=== PATIENT | female | born 1995 | race Caucasian/White ===

== ENCOUNTER 2022-12-28 19:19 | Outpatient (RCR) | payer OTHER, SELFPAY ==
[2022-12-28] MEDS: RHO(D) IMMUNE GLOBULIN 300 MCG/2 ML SYRINGE IM (19:38)
== END 2023-03-27 23:59 | disposition home or self-care (01) ==
LOC: ANHLAB 19:19
PROVIDERS: PCP Pediatrics; Visit Provider Obstetrics & Gynecology
DX: Z29.13 Encounter for prophylactic Rho(D) immune globulin (principal); O36.0130 Maternal care for anti-D [Rh] antibodies, third trimester, not applicable or unspecified; Z3A.00 Weeks of gestation of pregnancy not specified
CPT/HCPCS: 36415; 85461; 86850; 86900; 86901; 90384; J2790

== ENCOUNTER 2023-03-02 16:16 | Outpatient (CLI) | payer OTHER, SELFPAY ==
[2023-03-02 16:57] VITALS: BP 149/88; PULSE 79
[2023-03-02 17:01] VITALS: BP 147/86; PULSE 77
[2023-03-02 17:07] LABS: Basophils Percent Auto 0.4 % (0.2-1.2); Eosinophils Absolute Auto 0.1 K/mm3 (0-0.3); Eosinophils Percent Auto 0.7 % (0-4.4); Hematocrit 38.9 % (37.0-47.0); Hemoglobin 13.1 g/dL (12.0-15.0); Immature Granulocyte Absolute 0.06 K/mm3 (0.00-0.031); Immature Granulocyte Percent A 0.6 % (0-0.5); Lymphocytes Absolute Auto 1.87 K/mm3 (0.9-3.2); Mean Corpuscular HGB Conc 33.7 g/dl (32-36); Mean Platelet Volume 10.3 fl (7.4-10.4); Monocytes Absolute Auto 0.8 K/mm3 (0.1-0.6); Monocytes Percent Auto 8.4 % (2.6-8.5); Neutrophils Percent Auto 70.9 % (45.5-73.1); Platelet Count Result 210 k/mm3 (150-375); Red Blood Count 4.37 M/mm3 (4.2-5.4); Red Cell Distribution Width 13.6 % (11.5-14.5); White Blood Count 9.8 K/mm3 (4.5-10.0)
[2023-03-02 17:16] VITALS: BP 147/85; PULSE 70
[2023-03-02 17:16] LABS: Appearance Urine Clear (Clear); Bacteria Urine Rare /hpf; Bilirubin Urine Negative (Negative); Blood Urine Trace (Negative); Color Urine Yellow (Yellow); Glucose Urine UA Negative (Negative); Hyaline Casts Urine Present /lpf; Ketones Urine Negative (Negative); Leukocyte Esterase Ur Negative LEU/UL (NEGATIVE); Nitrate Urine Negative (Negative); Non Pathogenic Casts 0-2; Protein Urine Negative (Negative); RBC Urine 0-2 /hpf (0-2); Specific Grav Ur 1.006 (1.001-1.035); Squamous Epithelial Cell Urine Occasional /hpf (Few); Urobilinogen Urine 0.2 mg/dL (<2.0); WBC Urine 0-5 /hpf (0-3)
[2023-03-02 17:24] LABS: Add Urine Microscopic? YES
[2023-03-02 17:31] VITALS: BP 141/82; PULSE 68
[2023-03-02 17:31] LABS: Alanine Aminotransferase 15 U/L (6-35); Albumin Level 3.5 g/dL (3.5-5.1); Alkaline Phosphatase 218 U/L (38-126); Anion Gap 9 mmol/L (8-16); Aspartate Amino Transferase 22 U/L (14-36); Bilirubin,Total 0.3 mg/dL (0.2-1.3); Blood Urea Nitrogen 5 mg/dL (7-17); Calcium 9.6 mg/dL (8.4-10.2); Carbon Dioxide 20 mmol/L (22-30); Chloride 107 mmol/L (98-107); Estimated Glomerular Filt Rate > 60; Glucose 75 mg/dL (65-110); Potassium 3.3 mmol/L (3.4-5.0); Sodium 136 mmol/L (137-145); Uric Acid 3.9 mg/dL (2.5-7.5)
--- NOTE | 2023-03-02 17:36 | PC.NURSE ---
Called Dr. Alma Cantor with lab results and BPs. Reactive tracing with contractions q 2-5 min. December D/C home.
[2023-03-02 18:39] LABS: Creatinine Urine 39.5 mg/dL; Total Protein Urine Random 26 mg/dL; Ur Ttl Prot Creatinine Ratio 0.66 mg/mg (0-0.20)
== END 2023-03-02 17:42 | disposition home or self-care (01) ==
LOC: ANHOBOP 16:32 → ANHOBPP 16:39
PROVIDERS: Visit Provider Obstetrics & Gynecology
DX: O13.9 Gestational [pregnancy-induced] hypertension without significant proteinuria, unspecified trimester (principal); Z3A.00 Weeks of gestation of pregnancy not specified
CPT/HCPCS: 36415; 59025; 80053; 81001; 82570; 84156; 84550; 85025; 87086; 99199

== ENCOUNTER 2023-03-04 14:53 | Observation (INO) | payer OTHER, SELFPAY ==
[2023-03-04 15:09] VITALS: BP 141/82; PULSE 69
[2023-03-04 15:16] VITALS: BP 139/84; PULSE 67
[2023-03-04 15:31] VITALS: BP 138/78; PULSE 71
[2023-03-04 15:46] VITALS: BP 135/77; PULSE 70
[2023-03-04 15:51] VITALS: BMI 41.2
--- NOTE | 2023-03-04 15:52 | OBADM ---
This patient, Nasrin Richmond, admitted to the OB room OB Post 116 for observation. Patient/family oriented to hospital policies and general routines including ID bracelet, bed and alarms, visiting hours, pain management, procedures, bathroom and other care routines, personal items, smoking policy, room service/diet, and visiting hours. Patient/Family are encouraged to report perceived risks to care and to ask questions if they do not understand what they are told or what they should do.
--- NOTE | 2023-03-05 16:35 | PM.OBTRLD ---
OB - Triage/Final Diagnosis Visit Information Reason for evaluation: threatened labor Comments/Additional reasons for admission: I have assessed the risk for this patient, Nasrin Richmond, and determined that she would benefit from observation care. Evaluation Laboratory results: Laboratory Tests 03/04/23 15:46 KB Hemoglobin Negative
== END 2023-03-04 16:00 | disposition home or self-care (01) ==
PROVIDERS: Admitting Provider Obstetrics & Gynecology; Visit Provider Obstetrics & Gynecology
DX: O47.9 False labor, unspecified (principal); Z3A.00 Weeks of gestation of pregnancy not specified
CPT/HCPCS: 36415; 85460; G0378; G0379

== ENCOUNTER 2023-03-11 15:51 | Inpatient (IN) | payer OTHER, SELFPAY ==
--- NOTE | 2023-03-11 17:15 | WPDANESEPP ---
Anes - Eval Pre Procedure Procedure: labor epidural Date/Time: 03/11/23 17:15 Pre Op Diagnosis: IOL Patient Data Age: 27 Gender: F Height: Weight: Allergies Allergy/AdvReac Type Severity Reaction Status Date / Time No Known Allergies Allergy Verified 02/14/23 15:39 Home Medications Medication Instructions Recorded Confirmed Type cetirizine 10 mg tablet (Zyrtec) 10 mg PO DAILY 02/14/23 02/14/23 History prenat.vits,blaire,dtn-ingm-ctich 1 tablet 02/14/23 History Patient hx anesthesia problems: none Family hx anesthesia problems: none Results Review: All pre-operative results and documents have been reviewed as part of the pre-operative evaluation. [facility] Past Medical History Medical History (Updated 03/11/23 @ 17:16 by Mari Guajardo CRNA) Anxiety and depression Family History Family History Grandparent Breast cancer Social History Social History Substance use: never Spiritual care concerns: No Exam Day of Procedure 03/11/23 17:15 Patient weight: obese Heart: regular rate and rhythm Lungs: normal air movement Airway: Mallampati scale Neurological: alert and oriented
[2023-03-11] MEDS: DINOPROSTONE 10 MG VAG INSERT VAGINAL (17:26)
[2023-03-11 17:27] LABS: Basophils Percent Auto 0.2 % (0.2-1.2); Eosinophils Absolute Auto 0.1 K/mm3 (0-0.3); Eosinophils Percent Auto 0.7 % (0-4.4); Hematocrit 36.8 % (37.0-47.0); Hemoglobin 12.6 g/dL (12.0-15.0); Immature Granulocyte Absolute 0.05 K/mm3 (0.00-0.031); Immature Granulocyte Percent A 0.5 % (0-0.5); Lymphocytes Percent Auto 14.1 % (18.3-44.2); Mean Corpuscular HGB Conc 34.2 g/dl (32-36); Mean Corpuscular Hemoglobin 30.4 pg (26-34); Mean Corpuscular Volume 88.7 fl (80-100); Mean Platelet Volume 10.1 fl (7.4-10.4); Monocytes Absolute Auto 0.6 K/mm3 (0.1-0.6); Monocytes Percent Auto 6.8 % (2.6-8.5); Neutrophils Absolute Auto 7.2 K/mm3 (1.3-6.7); Neutrophils Percent Auto 77.7 % (45.5-73.1); Platelet Count Result 222 k/mm3 (150-375); Red Blood Count 4.15 M/mm3 (4.2-5.4); Red Cell Distribution Width 13.7 % (11.5-14.5); White Blood Count 9.2 K/mm3 (4.5-10.0)
[2023-03-11 17:38] LABS: Alanine Aminotransferase 15 U/L (6-35); Albumin Level 3.3 g/dL (3.5-5.1); Alkaline Phosphatase 207 U/L (38-126); Anion Gap 7 mmol/L (8-16); Aspartate Amino Transferase 21 U/L (14-36); Bilirubin,Total 0.4 mg/dL (0.2-1.3); Blood Urea Nitrogen 5 mg/dL (7-17); Calcium 8.5 mg/dL (8.4-10.2); Carbon Dioxide 22 mmol/L (22-30); Chloride 105 mmol/L (98-107); Estimated Glomerular Filt Rate > 60; Glucose 82 mg/dL (65-110); Potassium 2.9 mmol/L (3.4-5.0); Sodium 134 mmol/L (137-145); Uric Acid 4.8 mg/dL (2.5-7.5)
[2023-03-11 17:48] VITALS: TEMP 36.1
[2023-03-11 17:50] VITALS: BP 134/88; PULSE 62
[2023-03-11 18:00] VITALS: BP 137/82; PULSE 61
[2023-03-11 18:30] VITALS: BP 144/80; PULSE 61
[2023-03-11 19:00] VITALS: BP 121/72; PULSE 71
[2023-03-11 23:34] VITALS: BP 146/90; PULSE 67; TEMP 36.1
[2023-03-12] VITALS (259 sets, daily range): BP systolic 121–194; BP diastolic 66–114; PULSE 53–127; RESP 16–18; TEMP 36.1–37.1; O2SAT 92–100
[2023-03-12] MEDS: LACTATED RINGERS 1,000 ML 125 ML IV CONT ×4 (05:56→23:08)
[2023-03-12] MEDS: OXYTOCIN 30 UNITS/NS 500 ML 30 UNITS/500 ML BAG 6 UNITS IV CONT (05:57)
[2023-03-12 06:04] LABS: Rapid Plasma Reagin Non-Reactive (NonReactive)
[2023-03-12] MEDS: POTASSIUM CHLORIDE 20 MEQ ER TABLET 40 MEQ PO (09:15)
--- NOTE | 2023-03-12 09:15 | WPDOBADMIT ---
Obstetrics - Admit Note Admission Note: record reviewed. Additions to the history and/or subsequent changes in the physical findings follow. 27 y/o G1 at 39 2/7 weeks here for induction of labor. GBS neg. EFW on ultrasound just over 3 weeks ago was 7#13oz, so today the EFW is approximately 9#. Cervidil overnight, has been withdrawn. Starting to feel more contractions. AVSS NST reactive TOCO: contractions irregularly ABD soft, nontender, gravid, vertex EXT nontender Cervix 2-3/80/-2. Vertex. AROM with clear fluid. IUPC placed. A: IUP at term, desiring induction of labor. P: Oxytocin. Anticipate .
--- NOTE | 2023-03-12 13:15 | PM.OBPNLAB ---
Pain Control Date/time seen: 03/12/23 11:45 Comments: Comfortable with epidural. Pelvic Exam Dilation (cm): 4 Effacement (%): 80 station: -1 Contractions Contraction frequency: 3 Contraction pattern: Regular Status status: Category l Assessment and Plan Plan: continuous present management Comments: Continue labor.
--- NOTE | 2023-03-12 16:39 | PC.NURSE ---
1403 - Introductions were made and mother shared how she would like to feed her baby with . Encouraged mother to place ugsz-us-[id number] until the first feeding if infant is stable and to wait on the weight to help stabilize, reduce stress, and improve latching by allowing time to explore parent's chest using instincts. Education was shared on how to protect her milk supply with latching infant and/or using hand expression to remove milk if doesn't latch in the first hour, then finger feed colostrum to the infant to preserve breast focus. Demonstration given on how to hand express using tool. Resources provided with educational trifold for bonding and feeding infant. Parents voiced understanding of information and to call if there is a request for assistance.
--- NOTE | 2023-03-12 16:42 | PM.OBPNLAB ---
Pain Control Date/time seen: 03/12/23 16:42 Comfortable with epidural. Pelvic Exam Dilation (cm): 5 Effacement (%): 90 station: -1 Contractions Monitor mode: Internal Contraction frequency: 3 Contraction pattern: Regular Status status: Category l Assessment and Plan Comments: Continue labor.
[2023-03-12] MEDS: diphenhydrAMINE HCl INJ 50 MG/ML VIAL 25 MG IV PUSH (20:47)
[2023-03-12] MEDS: CALCIUM CARBONATE (TUMS) 500 MG (200 MG ELEMENTAL) 400 MG PO (20:47)
[2023-03-13] VITALS (103 sets, daily range): BP systolic 96–165; BP diastolic 62–112; PULSE 71–178; RESP 16–18; TEMP 36.3–37.1; O2SAT 83–100
[2023-03-13] MEDS: AMPICILLIN 2 GM/NS 100 ML 2 GM/100 ML BAG IVPB (03:39)
--- NOTE | 2023-03-13 04:54 | P.PCNOB_ITS ---
OB - Delivery Note Procedure Delivery date: 03/13/23 Procedure: Induction of labor with Induction method: Per Cervidil Protocol Delivery augmentation: Rupture of Membranes and Pitocin Delivery monitor: External FHT, External Uterine and Internal Uterine Route of delivery: Laceration Description: Perineal - 2nd Degree Delivery repair: vicryl (3-0) Specimen: Yes (cord blood) Quantitative Blood Loss (ml): 140 Anesthesia type: Epidural Disposition: PACU Complications: None Narrative: 27 y/o G1 at 39 3/7 weeks gestation who presented to the hospital for induction of labor. Cervidil was placed overnight, then withdrawn in the morning. Oxytocin was administered intravenously. Amniotomy was performed with return of clear fluid. She received an epidural for pain control. Her labor progressed and her cervix dilated completely. She pushed with good effort and delivered the infant's head to the perineum, followed by the body. The nose and mouth were bulb suctioned. After a delay, the cord was clamped and cut. The was handed off the field. Cord blood was collected. The placenta delivered spontaneously and was grossly normal in appearance. The usual 3 vessel cord was noted. A second degree midline perineal laceration was sustained. This was reapproximated using 3 0 Vicryl in the usual layered fashion. Excellent h emostasis resulted as did excellent reapproximation of the normal anatomy. Needle and instrument counts were correct. The patient was taken to recovery room in stable condition. The went to the nursery in stable condition. I was present and scrubbed for the entire delivery. [place] Baby Date of : 03/13/23 Time of : 04:27 Weeks of gestation at delivery: 39 Infant gender: Male presentation: vertex position: Right Occiput Anterior Placenta delivery description: Spontaneous and Normal Configuration Cord Vessel Description: 3 Vessels and Delayed Cord Clamping score one minute: 8 score five minutes: 9
--- NOTE | 2023-03-13 04:55 | PM.OBDSVD ---
DS: Admitting Diagnosis Discharge Date 03/15/23 Admitting Diagnosis IUP at 39 3/7 weeks DS: Discharge Diagnosis Discharge Diagnosis (1) (normal spontaneous vaginal delivery): Code(s): O80 - Encounter for full-term uncomplicated delivery Status: Acute OB - DS: Summary OB Procedures : None OB Procedures Intrapartum: Spontaneous Vag Delivery OB Procedures: : None Time Spent with Patient Time attestation: Total time spent providing and/or coordinating discharge services: DS: Data Data Completed and Pending Labs on day of discharge: Labs from last 24 hours 03/11/23 16:45 RPR Non-reactive Discharge Plan Discharge Attending physician on discharge: Roberto Aguillon Discharging Clinician: Roberto Aguillon Patient Disposition: Home, Self-Care Activity: pelvic rest Diet: regular Discharge Instructions: Call or return if temperature above 100.4? F, increased abdominal pain, increased vaginal bleeding or any new problems. Education: Mom and Baby Guide Given to: Mother Follow-Up: Call your delivering provider's office for an appointment to be seen in: 6 weeks, if blood pressure is elevated at follow up appointment on 03/17/23, you will need to be seen in the office in 1 week for blood pressure check. Mom and baby should come to the [facility] for the follow-up appointment. Appointment Date/Time: March 17, 2023 at 11:00 am What to expect at your follow-up visit: Blood Pressure Check & Physical Assessment Call [phone] if you are unable to keep your appointment time. BREAST CARE: * Wear a snug supportive bra. * For engorgement discomfort: Breast Feeding/Pumping: * Apply warm moist washcloths * Express milk as needed to relieve engorgement * Wear loose clothing Bottle Feeding: * May apply ice packs * For sore nipples: * Identify correct latch-on/flange size * Apply warm moist washcloths before and after nursing * Air dry nipples after nursing * May apply Lansinoh cream to nipples EPISIOTOMY/PERINEAL CARE: * Until bleeding stops, use your mela bottle after urinating * Change your pad frequently throughout the day * You may take sitz baths several times a day (fill your bathtub with warm water and soak for 20 minutes.) Do NOT bathe in the water * No tub baths until seen by your physician - You may shower ACTIVITY: * Rest as much as possible. * Do not exercise or lift anything heavier than your baby (such as laundry or other children.) * Avoid stairs or driving as much as possible. * Do not put anything into the vagina. No douching, tampons, or sexual activity until seen by physician. NOTIFY PHYSICIAN IF YOU HAVE ANY QUESTIONS OR IF ANY OF THE FOLLOWING SYMPTOMS OCCUR: * If your episiotomy/perineum becomes red, swollen, or more painful than what you have experienced in the hospital. * If your vaginal bleeding becomes foul smelling. * If your vaginal bleeding becomes more heavy than a period or if your bleeding changes from pink to bright red. However, you may pass an occasional walnut-sized clot once or twice for the first week . * If you experience a sharp, shooting pain in you calves. * If you discover a hard, reddened area on your breast or if you experience flu-like symptoms. DIET: * Eat regular, well-balanced meals. * Drink plenty of fluids daily. If , drink to thirst. Patient Instructions: Your Baby (DC), Expression, Collection and Storage of Breast Milk (DC) Stand Alone Forms: General Discharge Information Follow-up/Referrals: Roberto Aguillon MD [Physician] - 6 Weeks Discharge Medications: New ibuprofen 600 mg tablet 600 mg PO Q6H PRN (Reason: cramps) Qty: 30 0RF Continued cetirizine [Zyrtec] 10 mg Tablet 10 mg PO DAILY prenat.vits,blaire,bpo-dilh-xtior Tablet 1 tablet
[2023-03-13] MEDS: OXYTOCIN 30 UNITS/NS 500 ML 30 UNITS/500 ML BAG 125 UNITS IV CONT (05:00)
[2023-03-13] MEDS: LIDOCAINE HCL 1% LOCAL INJ 20 ML VIAL (05:02)
[2023-03-13] MEDS: ACETAMINOPHEN 325 MG TABLET 650 MG PO (07:53)
[2023-03-13] MEDS: BENZOCAINE 20% AER SPR (*SP) 56 GM CAN 1 SPRAY TOPICAL (07:53)
[2023-03-13] MEDS: WITCH HAZEL 40 PADS 1 PAD TOPICAL (07:53)
--- NOTE | 2023-03-13 08:20 | OBPPTRN ---
Patient transferred to post room #282 via wheelchair. Support person present. Oriented to unit, room, information board, rooming in, admission packet and security measures. Patient verbalizes understanding.
--- NOTE | 2023-03-13 13:07 | WPDANLDPN2 ---
Anes-Prog Note L&D Date/Time: 03/13/23 13:07 Comfortable throughout: labor and delivery Neuraxial method: epidural Epidural/Spinal procedure site: clean & non-tender Neuro status: Neuro function grossly intact. Cardiovascular status: normal Respiratory status: normal Airway patency: baseline Mental status: baseline Post-Op hydration status: normal Vital Signs: Last Vital Signs Temp 36.6 C 03/13/23 13:02 Pulse 86 03/13/23 13:02 Resp 16 03/13/23 13:02 BP 141/82 H 03/13/23 13:02 Pulse Ox 99 03/13/23 13:02 O2 Del Method Room Air 03/13/23 12:00 Pain score (VAS): 2 I/O: Intake & Output 03/12/23 03/13/23 03/13/23 23:59 07:59 15:59 Intake Total 1000 1000 350 Output Total 140 85 Balance 1000 860 265 Post-procedural complaints: none Patient feedback: Patient satisfied with anesthetic care.
[2023-03-13] MEDS: DOCUSATE SODIUM 100 MG CAPSULE PO (16:20)
[2023-03-13] MEDS: IBUPROFEN 600 MG TABLET PO (16:21)
--- NOTE | 2023-03-13 18:38 | PC.NURSE ---
[id number] Consulted with patient to assess needs related to . Mother is demonstrating with the nipple shield. There's milk residue in the shield, however, as the baby nurses the nipple shield and the breast are visualized moving in and out of the infants mouth. Reviewed working with infant, supporting breast and how to protect the nipples with an optimal deep latch, good positioning, and good hand washing. Education was given on how to protect the nipple, milk supply and how to use the nipple shield as a tool, then removing it to see if the will latch without it. The nipple shield was removed (nipple blanching was visualized) and the infant latched to the nipple that had been pulled out with the nipple shield on the left breast using the football positioning. Mother works well with her with encouragement and was educated on how to watch and listen for swallowing. Encouraged understanding the benefits of skin to skin, responding to feeding cues, frequencies of feeding 8-12 times in 24 hours (approximately 2-3 hours), duration of feedings, milk production, intake/output feeding sheet and signs of adequate intake encouraging swallowing at the breast. After an effective breastfeed infant detached and the nipple was not misshaped and mother had no pain. [phone] Consulted with patient to assess needs related to . Mother is demonstrating with the nipple shield. There's milk residue in the shield, however, as the baby nurses the nipple shield and the breast are visualized moving in and out of the infants mouth. Reviewed the nipple shield waltz and removed the nipple shield and latched to mother's breast with effective pain free. [phone] Consulted with patient and the parents are concerned regarding the appears to be gagging. Instructed with demonstration of how to use the bulb syringe and how to turn over and perform back pats to assist on getting clearing fluid out so they can be prepared if this should happen at home. Reviewed how to call for help while at the hospital. is gaggy and not attempting to latch at this time. Reported to the Primary RN.
[2023-03-14 04:09] VITALS: BP 131/88; PULSE 78; RESP 18; TEMP 36.8; O2SAT 97
[2023-03-14 04:41] LABS: Hemoglobin 10.8 g/dL (12.0-15.0)
[2023-03-14] MEDS: MULTIVIT/MIN/PREN/FOL AC/IRON TABLET 1 TAB PO (07:44)
[2023-03-14] MEDS: DOCUSATE SODIUM 100 MG CAPSULE PO ×2 (07:44→16:28)
[2023-03-14 07:45] VITALS: BP 128/90; PULSE 62; RESP 16; TEMP 36.6; O2SAT 100
[2023-03-14] MEDS: IBUPROFEN 600 MG TABLET PO ×2 (07:45→16:28)
--- NOTE | 2023-03-14 11:03 | PM.OBPNVD ---
OB - PN: Subj Subjective Date/time seen: 03/14/23 11:03 Narrative: Pain OK. Would like circumcision for son. OB - PN: Obj Data Labs 03/14/23 02:36 03/11/23 16:45 Labs: Laboratory Results - last 24 hr 03/14/23 02:36 Hgb 10.8 L Hct 33.0 L OB - PN A/P Plan day: 1 Comments: A: PPD#1, doing well. P: Routine care. Reviewed circ. Plan home tomorrow. Exam Psych: Other: AVSS ABD soft, nontender, fundus firm EXT nontender
--- NOTE | 2023-03-14 13:13 | WPDANLDPN2 ---
Anes-Prog Note L&D Date/Time: 03/14/23 13:13 Comfortable throughout: labor and delivery Neuraxial method: epidural Epidural/Spinal procedure site: clean & non-tender Neuro status: Neuro function grossly intact. Cardiovascular status: normal Respiratory status: normal Airway patency: baseline Mental status: baseline Post-Op hydration status: normal Vital Signs: Last Vital Signs Temp 36.6 C 03/14/23 07:45 Pulse 62 03/14/23 07:45 Resp 16 03/14/23 07:45 BP 128/90 03/14/23 07:45 Pulse Ox 100 03/14/23 07:45 O2 Del Method Room Air 03/13/23 12:00 Pain score (VAS): 3/10 I/O: Intake & Output 03/13/23 03/14/23 03/14/23 23:59 07:59 15:59 Intake Total 950 600 Output Total 300 500 Balance 650 100 Post-procedural complaints: none Patient feedback: Patient satisfied with anesthetic care.
[2023-03-14] MEDS: POTASSIUM CHLORIDE 20 MEQ ER TABLET 40 MEQ PO (16:28)
[2023-03-14 20:00] VITALS: BP 138/92; PULSE 70; RESP 18; TEMP 36.6; O2SAT 100
[2023-03-15] MEDS: DOCUSATE SODIUM 100 MG CAPSULE PO ×2 (09:52→16:33)
[2023-03-15] MEDS: POTASSIUM CHLORIDE 20 MEQ ER TABLET 40 MEQ PO ×2 (09:53→17:49)
[2023-03-15] MEDS: WITCH HAZEL 40 PADS 1 PAD TOPICAL (09:53)
[2023-03-15] MEDS: IBUPROFEN 600 MG TABLET PO ×2 (09:56→16:33)
[2023-03-15 10:00] VITALS: BP 142/86; PULSE 62; RESP 18; TEMP 36.7; O2SAT 99
--- NOTE | 2023-03-15 17:53 | PC.NURSE ---
Patient given discharge instructions and has been discharged to a Care Bed as her infant is still admitted due to jaundice and receiving phototherapy.
--- OUTSIDE RECORDS SUMMARY | 2023-05-12 11:57 | XMS_ITS | Patient Health Record ---
Author Name Unknown Organization [facility] Address [address] [place] [address] Care Team Providers Care Electrical Contacts Adjuster Name Role Phone Mari Aguillon Primary Care Provider Unavailab Mandi Golden Unavailable [phone] ALLERGIES No Known Allergies REASON FOR REFERRAL No Information MEDICATIONS Medication SIG (Take, Route, Frequency, Duration) Notes Start Date End Date Status famotidine 40 mg 1 tab(s) orally bid Active Cetirizine Hydrochloride 10 mg 1 tab(s) orally bid Active IMMUNIZATIONS Vaccine Route Administration Date Status Comme nts DTaP < 7 y/o Unknown 11/28/2002 Administered Portal Inf ormation Hepatitis B (11-19) Unknown 07/13/1998 Administered Por patti Information NOC PedvaxHIB Unknown 01/05/1999 Administered Portal In formation NOC Tdap Unknown 11/08/2008 Administered Portal Infor mation Hepatitis A Unknown 12/21/2009 Administered Portal Info rmation SOCIAL HISTORY Tobacco Use: Social History Observation Description Date Details (start date - stop date) Never Smoker NA - NA Sex Assigned At : Social History Observation Description Sex Assigned At Unknown Smoking Smart Form: Question Answer Notes Are you a: never smoker PROBLEMS Problem Type ICD Code Onset Dates
== END 2023-03-15 17:53 | disposition home or self-care (01) | DRG 807 ==
LOC: ANHLDR 03-13 04:56 → ANHOB2 03-13 08:22
PROVIDERS: Admitting Provider Obstetrics & Gynecology; Visit Provider Obstetrics & Gynecology
DX: O42.02 Full-term premature rupture of membranes, onset of labor within 24 hours of rupture (principal); Z37.0 Single live birth; O13.4 Gestational [pregnancy-induced] hypertension without significant proteinuria, complicating childbirth; Z3A.39 39 weeks gestation of pregnancy; O70.1 Second degree perineal laceration during delivery
CPT/HCPCS: 36415; 80053; 84550; 85014; 85018; 85025; 86592; 86850; 86880; 86900; 86901; 86902; A9270; J0290; J1200; J2590; J2795; J7120

== ENCOUNTER 2023-03-17 08:28 | Observation (INO) | payer OTHER, SELFPAY ==
[2023-03-17] VITALS (94 sets, daily range): BP systolic 125–180; BP diastolic 72–112; PULSE 25–155; RESP 16–30; TEMP 36.3–36.8; O2SAT 77–100; BMI 37.5
--- NOTE | ~2023-03-17 | XR_ITS ---
EXAMINATION: XR chest 2V DATE: 03/17/2023 09:48 INDICATION: Shortness of breath TECHNIQUE: frontal view of the chest was obtained. COMPARISON: None FINDINGS: Mild linear discoid atelectasis in the right upper lung zone. Additional streaky left basilar atelect asis. There appears to be some bronchial wall thickening in the infrahilar regions on the lateral pro jection. No pleural effusion or pneumothorax. The cardiomediastinal silhouette is normal. Visualized bones and soft tissues are unremarkable. IMPRESSION: 1. Mild bronchial wall thickening in the infrahilar regions which can be seen with bronchitis, reacti ve airway disease/asthma or with mild pulmonary edema. Reviewed, dictated and finalized at location L. IMPRESSION: 1. Mild bronchial wall thickening in the infrahilar regions which can be seen w ith bronchitis, reactive airway disease/asthma or with mild pulmonary edema.
[2023-03-17 08:51] LABS: Basophils Absolute Auto 0.1 K/mm3 (0.0-0.1); Basophils Percent Auto 0.5 % (0.2-1.2); Eosinophils Absolute Auto 0.3 K/mm3 (0-0.3); Eosinophils Percent Auto 2.9 % (0-4.4); Hematocrit 37.5 % (37.0-47.0); Hemoglobin 12.3 g/dL (12.0-15.0); Immature Granulocyte Absolute 0.21 K/mm3 (0.00-0.031); Lymphocytes Absolute Auto 1.15 K/mm3 (0.9-3.2); Lymphocytes Percent Auto 10.8 % (18.3-44.2); Mean Corpuscular HGB Conc 32.8 g/dl (32-36); Mean Corpuscular Volume 91.5 fl (80-100); Mean Platelet Volume 9.5 fl (7.4-10.4); Monocytes Absolute Auto 0.5 K/mm3 (0.1-0.6); Neutrophils Absolute Auto 8.4 K/mm3 (1.3-6.7); Neutrophils Percent Auto 78.8 % (45.5-73.1); Nucleated Red Blood Cells Perc 0.2 % (0.0-0.2); Platelet Count Result 281 k/mm3 (150-375); Red Cell Distribution Width 13.9 % (11.5-14.5); White Blood Count 10.6 K/mm3 (4.5-10.0)
[2023-03-17 08:59] LABS: Alanine Aminotransferase 57 U/L (6-35); Albumin Level 3.4 g/dL (3.5-5.1); Alkaline Phosphatase 147 U/L (38-126); Anion Gap 7 mmol/L (8-16); Aspartate Amino Transferase 48 U/L (14-36); Bilirubin,Total 0.6 mg/dL (0.2-1.3); Blood Urea Nitrogen 7 mg/dL (7-17); Calcium 8.4 mg/dL (8.4-10.2); Carbon Dioxide 23 mmol/L (22-30); Chloride 109 mmol/L (98-107); Estimated CRCL calculation 170 ml/min; Estimated Glomerular Filt Rate > 60; Glucose 129 mg/dL (65-110); Potassium 3.1 mmol/L (3.4-5.0); Sodium 139 mmol/L (137-145); Uric Acid 5.1 mg/dL (2.5-7.5)
[2023-03-17 09:07] LABS: Fibrinogen 373 mg/dl (215-510); INR 0.9; Prothrombin Time 12.2 Seconds (11.1-14.7)
[2023-03-17 09:08] LABS: Partial Thromboplastin Time 24.2 SECONDS (22.3-36.8)
--- NOTE | 2023-03-17 10:06 | ED.GENADULT ---
HPI - General Adult General Chief complaint: Recheck/Abnormal Lab/Rx Stated complaint: dyspnea/ swelling post Time Seen by Provider: 03/17/23 09:00 History of Present Illness HPI narrative: Nasrin Richmond is a 27 y/o female who is four days of vaginal delivery. She states that she was d/c from the hospital 2 days ago and she reports she has had continued swelling to her lower extremities that it has not really become any worse but she doesn't feel like it is getting any better. She also states that she had an episode of coughing/ shortness of breath that started last night. Reports of fever of 99 this morning. Related Data Home Medications Medication Instructions Recorded Confirmed prenat.vits,blaire,nyb-ugwr-wkqoi 1 tablet 02/14/23 Allergies Allergy/AdvReac Type Severity Reaction Status Date / Time No Known Allergies Allergy Verified 03/17/23 08:40 Review of Systems Review of Systems: CONSTITUTIONAL: Denies fever, chills, or sweats. EYES: Denies visual changes, redness, or discharge. ENT: Denies rhinorrhea, congestion, sore throat, or otalgia. CARDIOVASCULAR: Denies chest pain, palpitations, complains of continued lower extremity swelling RESPIRATORY: complains of cough with dyspnea that started last night GASTROINTESTINAL: Denies abdominal pain, nausea, vomiting, or diarrhea. GENITOURINARY: Denies dysuria or hematuria. SKIN: Denies rash or itching. MUSCULOSKELETAL: Denies back pain, joint pain, or myalgia. NEUROLOGIC: Denies headache, numbness, dizziness, or weakness. PSYCHIATRIC: Denies anxiety or depression. [facility] Past Medical History Medical History Anxiety and depression Family History Family History Grandparent Breast cancer Social History Social History Smoking status: Never smoker Second hand tobacco smoke exposure: No Substance use: never Lack of Transportation: No Lack of Food: Never True Current Housing: I Have Housing Concerned About Future Housing: No Difficulty Paying Gas/Electric Bills: No Difficulty Paying for Meds: No Currently Unemployed: No Education: Master's Degree or Higher Difficulty w/ Childcare or Family Care: No Spiritual care concerns: No Exam Narrative: GENERAL: well-nourished, and in no acute distress. HEAD: Normocephalic, atraumatic. EYES: PERRLA and EOMI. ENT: Nares clear, no rhinorrhea or epistaxis. Mucous membranes moist. NECK: Supple. No adenopathy or masses. No carotid bruits or JVD CHEST: Clear to auscultation. No respiratory distress. No wheezes rales or rhonchi HEART: Regular rate and rhythm. No murmur heard. Normal peripheral pulses. ABDOMEN: Soft, nontender, nondistended, normal active bowel sounds. EXTREMITIES: Normal range of motion. No edema. SKIN: Warm, dry, no rash. NEURO: No focal deficits. Alert and oriented x3. PSYCH: Normal mood and affect. Course Vital Signs Vital signs: Vital Signs Temperature 36.8 C 03/17/23 08:31 Pulse Rate 99 03/17/23 08:31 Respiratory Rate 21 H 03/17/23 08:31 Blood Pressure 170/106 H 03/17/23 08:31 Pulse Oximetry 99 03/17/23 08:31 Oxygen Delivery Room Air 03/17/23 08:31 Temperature 36.4 C 03/17/23 18:10 Pulse Rate 95 03/17/23 18:04 Respiratory Rate 16 03/17/23 18:10 Blood Pressure 149/97 H 03/17/23 18:10 Pulse Oximetry 88 L 03/17/23 18:04 Oxygen Delivery Room Air 03/17/23 08:31 Medical Decision Making [facility] Narrative Medical decision making narrative: On exam pt is calm, lung sounds clear, lower extremity edema evident pulses intact patient is hypertensive - pt sates she did have some b/p issues prior to delivery that her physician was watching. Called and spoke with her OBGYN Dr. Aguillon who would like pt to have urinalysis/ chest xray and call him w
[2023-03-17 10:45] LABS: Appearance Urine Cloudy (Clear); Bacteria Urine None Seen /hpf; Bilirubin Urine Negative (Negative); Blood Urine 3+ (Negative); Color Urine Orange (Yellow); Glucose Urine UA Negative (Negative); Ketones Urine Negative (Negative); Leukocyte Esterase Ur 3+ LEU/UL (Negative); Need Manual Microscopic Reviewed; Nitrate Urine Negative (Negative); Non Pathogenic Casts 0-2; Protein Urine 2+ mg/dL (Negative); RBC Urine >100 /hpf (0-2); Specific Grav Ur 1.008 (1.001-1.035); Squamous Epithelial Cell Urine Occasional /hpf (Few); Urobilinogen Urine 0.2 mg/dL (<2.0); WBC Urine >100 /hpf
[2023-03-17 10:47] LABS: Add Urine Microscopic? YES
[2023-03-17] MEDS: NIFEdipine 10 MG CAPSULE PO (11:35)
--- NOTE | 2023-03-17 11:55 | OBADM ---
This patient, Nasrin Richmond, admitted to the OB room OB Post 117 for observation. pt was sent from ER for elevated BP and swelling, short of breath. PT denies headache, blurred vision chest pain. Dr. Aguillon will evaluate pt in unit Patient/family oriented to hospital policies and general routines including ID bracelet, bed and alarms, visiting hours, pain management, procedures, bathroom and other care routines, personal items, smoking policy, room service/diet, and visiting hours. Patient/Family are encouraged to report perceived risks to care and to ask questions if they do not understand what they are told or what they should do.
[2023-03-17] MEDS: LACTATED RINGERS 1,000 ML 75 ML IV CONT (13:23)
[2023-03-17] MEDS: MAGNESIUM SULF 4 GM/WATER100ML 4 GM/100 ML BAG IVPB (13:24)
[2023-03-17] MEDS: FUROSEMIDE INJ 40 MG/4 ML VIAL 10 MG IV PUSH (13:25)
[2023-03-17] MEDS: MAGNESIUM SULF 20GM/WATER500ML 500 ML 50 MG IV CONT ×2 (14:10→23:58)
--- NOTE | 2023-03-17 16:12 | PC.NURSE ---
called Pal [place] updated BP.m ORder received for [employer] XL.
[2023-03-17] MEDS: NIFEdipine 30 MG TAB.ER.24 PO (16:35)
--- NOTE | 2023-03-17 16:58 | PM.IMHP ---
H&P: HPI History of Present Illness Date/Time: 03/17/23 16:58 Chief Complaint: Shortness of breath Narrative: 27 y/o PPD#4 s/p induction of labor with on 03/13/23. She had intermittently elevated bp readings during labor, but bp mostly normalized after delivery. She had normal labs. She is . She had a sensation of crackles in her lungs when she took a deep breath this morning, and felt like it was a little difficult to catch her breath. No cough. No headache, visual change, or abdominal pain. Review of Systems Review of Systems: All systems reviewed & are unremarkable except as noted in HPI and below PMFSH Past Medical History Medical History Anxiety and depression Family History Family History Grandparent Breast cancer Social History Social History Smoking status: Never smoker Second hand tobacco smoke exposure: No Substance use: never Lack of Transportation: No Lack of Food: Never True Current Housing: I Have Housing Concerned About Future Housing: No Difficulty Paying Gas/Electric Bills: No Difficulty Paying for Meds: No Currently Unemployed: No Education: Master's Degree or Higher Difficulty w/ Childcare or Family Care: No Spiritual care concerns: No Meds Home Medications and Allergies Home Medications Medication Instructions Recorded Confirmed Type prenat.vits,blaire,chs-xqja-mryth 1 tablet 02/14/23 History Allergies Allergy/AdvReac Type Severity Reaction Status Date / Time No Known Allergies Allergy Verified 03/17/23 08:40 Vital Signs Vital Signs - 24 hr 03/17/23 08:31 03/17/23 08:45 03/17/23 09:15 Temperature 36.8 C Pulse Rate 99 89 70 Respiratory Rate 21 H 24 H 20 Blood Pressure 170/106 H 167/98 H 171/112 H Pulse Oximetry 99 97 100 Oxygen Delivery Room Air 03/17/23 08:45 03/17/23 09:17 03/17/23 09:30 Temperature Pulse Rate 92 86 72 Respiratory Rate 30 H 28 H 24 H Blood Pressure Pulse Oximetry 98 99 98 Oxygen Delivery 03/17/23 09:32 03/17/23 09:57 03/17/23 10:00 Temperature Pulse Rate 72 65 65 Respiratory Rate 21 H 30 H 28 H Blood Pressure 167/105 H Pulse Oximetry 99 98 98 Oxygen Delivery 03/17/23 10:30 03/17/23 10:36 03/17/23 10:45 Temperature Pulse Rate 64 79 62 Respiratory Rate 22 H 18 17 Blood Pressure 180/101 H Pulse Oximetry 99 100 99 Oxygen Delivery 03/17/23 10:47 03/17/23 11:00 03/17/23 11:02 Temperature Pulse Rate 60 70 63 Respiratory Rate 21 H 18 18 Blood Pressure 170/103 H 167/105 H Pulse Oximetry 96 98 100 Oxygen Delivery 03/17/23 11:15 03/17/23 11:17 03/17/23 11:34 Temperature Pulse Rate 69 86 65 Respiratory Rate 25 H 26 H 21 H Blood Pressure 162/97 H Pulse Oximetry 99 99 99 Oxygen Delivery 03/17/23 11:45 03/17/23 12:00 03/17/23 12:01 Temperature Pulse Rate 65 91 Respiratory Rate 18 Blood Pressure 155/103 H 135/72 Pulse Oximetry 100 98 Oxygen Delivery 03/17/23 12:06 03/17/23 12:11 03/17/23 12:15 Temperature Pulse Rate 96 110 H Respiratory Rate Blood Pressure 130/73 150/89 H Pulse Oximetry 98 98 Oxygen Delivery 03/17/23 12:16 03/17/23 12:21 03/17/23 12:26 Temperature Pulse Rate Respiratory Rate Blood Pressure Pulse Oximetry 100 100 100 Oxygen Delivery 03/17/23 12:31 03/17/23 12:36 03/17/23 12:39 Temperature Pulse Rate 96 Respiratory Rate Blood Pressure 148/80 H Pulse Oximetry 100 99 80 L Oxygen Delivery 03/17/23 12:42 03/17/23 12:45 03/17/23 12:55 Temperature Pulse Rate 104 H Respiratory Rate Blood Pressure 150/89 H Pulse Oximetry 99 81 L Oxygen Delivery 03/17/23 12:58 03/17/23 13:02 03/17/23 13:03 Temperature Pulse Rate 89 Respiratory Rate Bloo
[2023-03-17] MEDS: POTASSIUM CHLORIDE 20 MEQ ER TABLET 40 MEQ PO (20:10)
[2023-03-18] VITALS (18 sets, daily range): BP systolic 135–151; BP diastolic 83–103; PULSE 31–125; RESP 18; TEMP 36.3–36.4; O2SAT 79–100
[2023-03-18] MEDS: POTASSIUM CHLORIDE 20 MEQ ER TABLET 40 MEQ PO
--- NOTE | 2023-03-18 01:02 | PC.NURSE ---
RN at bedside, PT sleeping, rise and fall of chest noted, breathing unlabored.
[2023-03-18] MEDS: LACTATED RINGERS 1,000 ML 75 ML IV CONT (02:27)
[2023-03-18] MEDS: ACETAMINOPHEN 325 MG TABLET 650 MG PO (04:29)
[2023-03-18 04:45] LABS: Hematocrit 40.7 % (37.0-47.0); Hemoglobin 13.3 g/dL (12.0-15.0); Mean Corpuscular HGB Conc 32.7 g/dl (32-36); Mean Corpuscular Hemoglobin 29.4 pg (26-34); Mean Corpuscular Volume 89.8 fl (80-100); Mean Platelet Volume 9.2 fl (7.4-10.4); Platelet Count Result 303 k/mm3 (150-375); Red Blood Count 4.53 M/mm3 (4.2-5.4); Red Cell Distribution Width 13.9 % (11.5-14.5); White Blood Count 11.3 K/mm3 (4.5-10.0)
[2023-03-18 05:04] LABS: Alanine Aminotransferase 58 U/L (6-35); Albumin Level 3.9 g/dL (3.5-5.1); Alkaline Phosphatase 190 U/L (38-126); Anion Gap 8 mmol/L (8-16); Aspartate Amino Transferase 47 U/L (14-36); Bilirubin,Total 0.8 mg/dL (0.2-1.3); Blood Urea Nitrogen 5 mg/dL (7-17); Calcium 7.2 mg/dL (8.4-10.2); Carbon Dioxide 25 mmol/L (22-30); Chloride 103 mmol/L (98-107); Estimated CRCL calculation 170 ml/min; Estimated Glomerular Filt Rate > 60; Glucose 103 mg/dL (65-110); Potassium 3.4 mmol/L (3.4-5.0); Sodium 136 mmol/L (137-145); Uric Acid 5.5 mg/dL (2.5-7.5)
--- NOTE | 2023-03-18 06:07 | PC.NURSE ---
Dr. Aguillon notified of PT vitals, labs, PT having a headache rating it a 2 on a pain scale of 1-10, Tylenol given. Orders to hold KCL tablets.
--- NOTE | 2023-03-18 08:48 | PC.NURSE ---
0830- patient pumping at this moment, will get VS after pumping.
--- NOTE | 2023-03-18 09:11 | PC.NURSE ---
0900- Dr. Aguillon at bedside, turn off magnesium. Monitor VS throughout day. Give Procardia XL 30 mg now.
[2023-03-18] MEDS: NIFEdipine 30 MG TAB.ER.24 PO (09:24)
--- NOTE | 2023-03-18 16:14 | PM.OBPNVD ---
OB - PN: Subj Subjective Date/time seen: 03/18/23 16:14 Comfortable. No headache or visual field change. We stopped magnesium sulfate this morning. OB - PN: Obj Data Labs 03/18/23 04:29 03/18/23 04:29 Labs: Laboratory Results - last 24 hr 03/18/23 04:29 WBC 11.3 H RBC 4.53 Hgb 13.3 Hct 40.7 MCV 89.8 MCH 29.4 MCHC 32.7 RDW 13.9 Plt Count 303 MPV 9.2 Sodium 136 L Potassium 3.4 Chloride 103 Carbon Dioxide 25 Anion Gap 8 BUN 5 L Creatinine 0.50 L Estim Creat Clear Calc 170 Estimated GFR > 60 Glucose 103 Uric Acid 5.5 Calcium 7.2 L Total Bilirubin 0.8 AST 47 H ALT 58 H Alkaline Phosphatase 190 H Total Protein 7.0 Albumin 3.9 OB - PN A/P Assessment and Plan (1) Pre-eclampsia, : Code(s): O14.95 - Unspecified pre-eclampsia, complicating the puerperium Status: Acute Assessment and Plan: A: PPD#5, with preeclampsia, improving. P: Home on Procardia XL 60 mg daily. F/u next week for exam, bloodwork. Exam Narrative: AVSS BP 140/90 I/O shows great urine output ABD soft, nontender, fundus firm EXT nontender; pitting edema to mid-carrillo, improved from yesterday
--- NOTE | 2023-03-18 16:36 | PC.NURSE ---
1610- Dr. Aguillon at bedside, okay to discharge patient with procardia. Patient in agreement with plan of care.
--- NOTE | 2023-03-31 08:02 | PM.OBTRLD ---
OB - Triage/Final Diagnosis Visit Information Comments/Additional reasons for admission: I have assessed the risk for this patient, Nasrin Richmond, and determined that she would benefit from observation care. Evaluation Laboratory results: Laboratory Tests 03/17/23 03/17/23 03/17/23 08:43 08:43 08:43 WBC 10.6 H RBC 4.10 L Hgb 12.3 Hct 37.5 MCV 91.5 MCH 30.0 MCHC 32.8 RDW 13.9 Plt Count 281 MPV 9.5 Immature Gran % (Auto) 2.0 H Neut % (Auto) 78.8 H Lymph % (Auto) 10.8 L [place] % (Auto) 5.0 Eos % (Auto) 2.9 Baso % (Auto) 0.5 Lymph # (Auto) 1.15 [place] # (Auto) 0.5 Eos # (Auto) 0.3 Baso # (Auto) 0.1 Abs Immat Gran (auto) 0.21 H Absolute Neuts (auto) 8.4 H Absolute Nucleated RBC 0.0 Nucleated RBC % 0.2 PT Cancelled 12.2 INR Cancelled 0.9 APTT Cancelled Fibrinogen Sodium Potassium Chloride Carbon Dioxide Anion Gap BUN Creatinine Estim Creat Clear Calc Estimated GFR Glucose Uric Acid Calcium Total Bilirubin Direct Bilirubin AST ALT Alkaline Phosphatase Total Protein Albumin Urine Color Urine Appearance Urine pH Ur Specific [place] Urine Protein Urine Glucose (UA) Urine Ketones Ur Blood (Man) Urine Nitrate Urine Bilirubin Urine Urobilinogen Add Ur Microanalysis Leukocyte Esterase Rfl Urine RBC Urine WBC Ur Squamous Epith Cells Urine Bacteria Urine Casts Blood Type Antibody Screen Antibody Identification Antigen Identification NOA, IgG Interpret NOA, Poly Interpret NOA, Complement Interp Enhanced Crossmatch 03/17/23 03/17/23 03/18/23 08:43 10:24 04:29 WBC 11.3 H RBC 4.53 Hgb 13.3 Hct 40.7 MCV 89.8 MCH 29.4 MCHC 32.7 RDW 13.9 Plt Count 303 MPV 9.2 Immature Gran % (Auto) Neut % (Auto) Lymph % (Auto) [place] % (Auto) Eos % (Auto) Baso % (Auto) Lymph # (Auto) [place] # (Auto) Eos # (Auto) Baso # (Auto) Abs Immat Gran (auto) Absolute Neuts (auto) Absolute Nucleated RBC Nucleated RBC % PT INR APTT 24.2 Fibrinogen 373 Sodium 139 136 L Potassium 3.1 L 3.4 Chloride 109 H 103 Carbon Dioxide 23 25 Anion Gap 7 L 8 BUN 7 5 L Creatinine 0.50 L 0.50 L Estim Creat Clear Calc 170 170 Estimated GFR > 60 > 60 Glucose 129 H 103 Uric Acid 5.1 5.5 Calcium 8.4 7.2 L Total Bilirubin 0.6 0.8 Direct Bilirubin 0.0 AST 48 H 47 H ALT 57 H 58 H Alkaline Phosphatase 147 H 190 H Total Protein 6.0 L 7.0 Albumin 3.4 L 3.9 Urine Color [place] H Urine Appearance Cloudy H Urine pH 8.0 Ur Specific [place] 1.008 Urine Protein 2+ H Urine Glucose (UA) Negative Urine Ketones Negative Ur Blood (Man) 3+ H Urine Nitrate Negative Urine Bilirubin Negative Urine Urobilinogen 0.2 Add Ur Microanalysis Reviewed Leukocyte Esterase Rfl 3+ H Urine RBC >100 H Urine WBC >100 H Ur Squamous Epith Cells Occasional Urine Bacteria None seen Urine Casts 0-2 Blood Type O Negative Antibody Screen Positive Antibody Identification Inconclusive Antigen Identification TNP NOA, IgG Interpret Not Performed NOA, Poly Interpret Neg NOA, Complement Interp Not Performed Enhanced Crossmatch See Detail Final Diagnosis (1) Pre-eclampsia, : Code(s): O14.95 - Unspecified pre-eclampsia, complicating the puerperium Status: Acute
== END 2023-03-18 17:22 | disposition home or self-care (01) ==
LOC: ANHED 09:01 → ANHOBPP 11:46
PROVIDERS: Emergency Medicine; Admitting Provider Obstetrics & Gynecology; Emergency Provider Nurse Practitioner Family; Visit Provider Obstetrics & Gynecology
DX: O14.95 Unspecified pre-eclampsia, complicating the puerperium (principal)
CPT/HCPCS: 36415; 71046; 80053; 81001; 82248; 84550; 85025; 85027; 85384; 85610; 85730; 86850; 86880; 86900; 86901; 86902; 86922; 87086; 87147; 87181; 87186; 96365; 96366; 96375; 99285; A9270; G0378; J1940; J3475; J7120

== ENCOUNTER 2024-08-13 10:54 | Outpatient (CLI) | payer OTHER, SELFPAY ==
[2024-08-13 11:52] LABS: Basophils Percent Auto 0.6 % (0.2-1.2); Eosinophils Absolute Auto 0.2 K/mm3 (0-0.3); Eosinophils Percent Auto 3.7 % (0-4.4); Hematocrit 44.3 % (37.0-47.0); Hemoglobin 14.5 g/dL (12.0-15.0); Immature Granulocyte Absolute 0.01 K/mm3 (0.00-0.031); Immature Granulocyte Percent A 0.2 % (0-0.5); Lymphocytes Absolute Auto 1.56 K/mm3 (0.9-3.2); Lymphocytes Percent Auto 30.5 % (18.3-44.2); Mean Corpuscular HGB Conc 32.7 g/dl (32-36); Mean Corpuscular Hemoglobin 29.4 pg (26-34); Mean Corpuscular Volume 89.7 fl (80-100); Mean Platelet Volume 9.9 fl (7.4-10.4); Monocytes Absolute Auto 0.4 K/mm3 (0.1-0.6); Monocytes Percent Auto 7.4 % (2.6-8.5); Neutrophils Percent Auto 57.6 % (45.5-73.1); Platelet Count Result 244 k/mm3 (150-375); Red Blood Count 4.94 M/mm3 (4.2-5.4); Red Cell Distribution Width 12.1 % (11.5-14.5); White Blood Count 5.1 K/mm3 (4.5-10.0)
[2024-08-13 12:22] LABS: LDL Cholesterol Direct 76 mg/dL
[2024-08-13 12:34] LABS: Alanine Aminotransferase 14 U/L (6-35); Albumin Level 4.5 g/dL (3.5-5.1); Alkaline Phosphatase 90 U/L (38-126); Anion Gap 2 mmol/L (4-12); Aspartate Amino Transferase 20 U/L (14-36); Bilirubin,Total 0.6 mg/dL (0.2-1.3); Blood Urea Nitrogen 12 mg/dL (7-17); Calcium 9.6 mg/dL (8.4-10.2); Carbon Dioxide 30 mmol/L (22-30); Chloride 105 mmol/L (98-107); Cholesterol 160 mg/dL (0-200); Estimated Glomerular Filt Rate > 60; Glucose 93 mg/dL (65-110); HDL Direct 43 mg/dL; Potassium 4.4 mmol/L (3.4-5.0); Sodium 137 mmol/L (137-145); Triglycerides 112 mg/dL (<150)
[2024-08-13 12:41] LABS: Thyroid Stimulating Hormone 0.793 uIU/mL (0.465-4.680)
== END 2024-08-13 10:55 | disposition home or self-care (01) ==
PROVIDERS: PCP Internal Medicine; Visit Provider Internal Medicine
DX: Z00.00 Encounter for general adult medical examination without abnormal findings (principal); Z13.29 Encounter for screening for other suspected endocrine disorder
CPT/HCPCS: 36415; 80053; 80061; 84443; 85025

== ENCOUNTER 2024-10-04 17:21 | Emergency (ER) | payer OTHER, SELFPAY ==
[2024-10-04 17:36] VITALS: BP 115/80; PULSE 76; RESP 16; TEMP 36.8; O2SAT 99
--- NOTE | 2024-10-04 17:48 | ED_ITS ---
HPI - URI/Sore Throat General Chief Complaint: Upper Respiratory Infection Stated Complaint: Flu Symptoms Source: patient and RN notes reviewed Mode of arrival: ambulatory Limitations: no limitations History of Present Illness HPI Narrative: 28-year-old female presented for complaint of cough, nasal congestion, sore throat, and bloodshot eyes. Symptoms for over 1 week. Says the congestion is worsening. She says her son had the flu last week. Denies shortness of breath wheezing nausea vomiting diarrhea, fevers or lethargy. Taking [id number] medicines for symptoms without relief. MD elicited complaint: cough Related Data Home Medications ?Medication ?Instructions ?Recorded ?Confirmed ?Last Taken ?Type triamcinolone acetonide 0.1 % applic topical 10/04/24 Unknown History topical cream Allergies Allergy/AdvReac Type Severity Reaction Status Date / Time No Known Allergies Allergy Verified 10/04/24 17:27 Review of Systems Review of Systems: per [facility] Past Medical History Medical History (Updated 10/04/24 @ 18:16 by Piedad Michele, NELDA) BMI 33.0-33.9,adult Anxiety and depression Family History Family History (Updated 08/08/24 @ 14:13 by Susan Crane Marlene) Grandparent Breast cancer Father No problems noted. Mother No problems noted. Sibling Hypertension Social History Social History (Updated 08/08/24 @ 14:14 by Susan Crane Marlene) Smoking status: Never smoker Second hand tobacco smoke exposure: No Alcohol intake: never Substance use: never Substance use type: does not use Do You Feel Safe in your Home?: Yes Lack of Transportation: No Lack of Food: Never True Current Housing: I Have Housing Concerned About Future Housing: No Difficulty Paying Gas/Electric Bills: No Difficulty Paying for Meds: No Currently Unemployed: No Education: Master's Degree or Higher Difficulty w/ Childcare or Family Care: No Living arrangements: with family Occupation/Education: occupation 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 TMs pearly gibson with dull light reflex bilaterally; no tragal tenderness. Oropharynx not erythematous; tonsils absent. no drooling, no hoarseness, no trismus, uvula midline. No tripod positioning, muffled voice, soft palate or pharyngeal wall bulging NECK: Supple. No lymphadenopathy CHEST: Clear to auscultation, breath sounds equal. No wheezing, rhonchi, rales, or stridor. No respiratory distress, speaks in full sentences. HEART: Regular rate and rhythm. No murmur heard. SKIN: Warm, dry, no rash. NEURO: Alert and oriented x3. PSYCH: Normal mood and affect Course Course Emergency Course: Patient is aware of diagnosis, understands and agrees to treatment plan. Anticipatory guidance given. Patient agrees to follow-up as directed and is aware of reasons to seek care at the emergency department. Portions of this record may have been created with voice recognition software Level of Care: Express Care Visit Vital Signs Vital signs: Vital Signs Temperature 98.2 F 10/04/24 17:36 Pulse Rate 76 10/04/24 17:36 Respiratory Rate 16 10/04/24 17:36 Blood Pressure 115/80 10/04/24 17:36 Pulse Oximetry 99 10/04/24 17:36 Temperature 98.2 F 10/04/24 17:36 Pulse Rate 76 10/04/24 17:36 Respiratory Rate 16 10/04/24 17:36 Blood Pressure 115/80 10/04/24 17:36 Pulse Oximetry 99 10/04/24 17:36 reviewed MDM - URI/Sore Throat MDM Narrative Medical decision making narrative: Discussed physical exam findings consistent bilateral conjunctivitis and bronchitis. Discussed physical exam findings. Advised supportive measures and signs/symptoms to go to the ER. Pt is appropriate for outpt treatment and f/u. Differential Diagnosis Differential diagnosis: Likely upper respiratory infection, sinusitis, viral infection, bronchitis, influenza and pharyngitis Lab Data Labs: Lab Results 10/04/24 Range/Units 18:00 POC Grp A Strep Screen Negative (Negative) Discharge Plan Discharge Clinical Impression: Bronchitis Conjunctivitis Qualifiers: Conjunctivitis type: unspecified Laterality: bilateral Qualified Code(s): H10.9 - Unspecified conjunctivitis Patient Disposition: Home, Self-Care Condition: Stable Instructions: Antibiotic Form, Acute Bronchitis (ED) Additional Instructions: Rapid strep swab was negative today You will be notified in a few days if the culture comes back positive for strep, and appropriate antibiotics will be called in at that time. if symptoms are due to a viral illness, it is not treated with antibiotics. Viral symptoms can be present for up to 10-14 days. Recommendations Flonase spray and Zyrtec for sinus congestion Cough syrup may cause drowsiness; avoid driving or take it at night time. Tylenol every 8 hours as needed for pain/fever Soft foods, cool liquids, warm tea. Gargle with warm saltwater twice a day. Chloraseptic spray and throat lozenges. Rest and stay hydrated. Avoid touching or rubbing your eye. Use over the counter lubricating eye drops as needed for irritation Use a warm or cool washcloth on your eye for comfort Use eyedrops as directed - you are contagious for 24 hours after starting the antibiotic Practice good handwashing and hygiene to prevent spread of infection Do not wear contact lenses. Use new makeup, lashes etc. You may take Tylenol or ibuprofen for pain Follow-up with PCP or cake froster if condition is not improving in 2-3days. Go to the emergency room if you have severe pain or pressure behind your eye, difficulty seeing, or other severe symptoms [facility] [phone] [facility] [phone] [facility] [phone] [facility] [phone] Patient Language: Angolan Prescriptions: New amoxicillin 500 mg tablet 1,000 mg PO DAILY 10 Days Qty: 20 0RF polymyxin B sulf-trimethoprim 10,000 unit- 1 mg/mL drops 1 drp EACH EYE Q3H 7 Days Qty: 10 0RF Rx Instructions: while awake; do not exceed 6 doses in 24 hours prednisone 20 mg tablet 40 mg PO DAILY 5 Days Qty: 10 0RF No Action triamcinolone acetonide 0.1 % cream TOPICAL Follow-up/Referrals: PHYSICIAN,[employer] TENDER [Primary Care Provider] - Stand Alone Forms: Work/School Release IP Time of Disposition: 17:58
[2024-10-04 18:03] LABS: EDSTREPNEGPOS1 Negative (Negative)
== END 2024-10-04 18:01 | disposition home or self-care (01) ==
PROVIDERS: Emergency Provider Nurse Practitioner Family
DX: J40 Bronchitis, not specified as acute or chronic (principal); H10.9 Unspecified conjunctivitis
CPT/HCPCS: 87081; 87880; 99213; G0463